=== PATIENT | female | born 1970 | race Caucasian/White ===

== ENCOUNTER 2024-11-07 10:55 | Emergency (ER) | payer OTHER ==
[~2024-11-07] VITALS: Ht 157.5 cm; Wt 85.3 kg
[2024-11-07 11:38] VITALS: PULSE 93; RESP 18; TEMP 97.8; O2SAT 98
[2024-11-07] MEDS ORDERED: SODIUM CHLORIDE 0.9% 1000ML 1,000 ML IV SCH (12:30)
[2024-11-07] MEDS: SODIUM CHLORIDE 0.9% 1000ML 1,000 ML IV STA (13:05)
[2024-11-07] MEDS: ONDANSETRON HCL INJ 2MG/ML 2ML 2 MG/ML VIAL IV PRN (13:05)
[2024-11-07 13:29] LABS: BASOPHILS % 0.3 % (0.0-1.0); EOSINOPHILS % 0.1 % (0.0-6.0); LYMPHOCYTES % 14.3 % (18.0-39.1); MONOCYTES % 9.0 % (4.4-11.3); NEUTROPHILS % 74.3 % (38.7-80.0); RED CELL DISTRIBUTION WIDTH 12.5 % (11.7-14.4)
[2024-11-07] MEDS: METOCLOPRAMIDE HCL 10 MG/2ML VIAL IV ONE (13:30)
[2024-11-07] MEDS: KETOROLAC TROMETHAMINE 30 MG/ML VIAL IV STA (13:30)
[2024-11-07] MEDS: DIPHENHYDRAMINE HCL 25 MG CAP PO ONE (13:30)
[2024-11-07 13:52] LABS: EST GLOMERULAR FILTRATION RATE 111.0 ML/MIN (>=60)
[2024-11-07 14:19] LABS: LEUKOCYTE ESTERASE ,URINE NEGATIVE (NEGATIVE); PROTEIN,URINE DIPSTICK NEGATIVE (NEGATIVE); URINE UROBILINOGEN 0.2 mg/dL (0.2 - 1)
[2024-11-07 14:26] LABS: WBC,URINE (MAN) 0-5 /HPF (0-5)
[2024-11-07 14:27] LABS: EPITHELIAL CELLS,URINE FEW /LPF
[2024-11-07] MEDS ORDERED: ONDANSETRON ODT4 MG PO (14:37)
== END 2024-11-07 14:45 | disposition home or self-care (01) ==
LOC: ER 11:42
DX: K52.9 Noninfective gastroenteritis and colitis, unspecified (principal); R74.8 Abnormal levels of other serum enzymes; I10 Essential (primary) hypertension; E78.5 Hyperlipidemia, unspecified; Z98.84 Bariatric surgery status
CPT/HCPCS: 36415; 70450; 80053; 81001; 83690; 85025; 99284; J1885; J2405; J2765; J7030